=== PATIENT | female | born 1970 | race Caucasian/White ===

== ENCOUNTER → 2016-12-17 | Outpatient (CLI) | payer BC ==
[~2016-12-17] MED LIST: EPP3 IM; ETONMIS VAGRING; MEDLIST; SERT50TA PO; WLLUNK
--- NOTE | 2016-12-17 15:49 | MAMMOGRAPHY REPORT ---
BILATERAL DIGITAL SCREENING MAMMOGRAM TOMOSYNTHESIS WITH CAD: 12/17/2016 CLINICAL HISTORY: Routine screening. TECHNIQUE: Breast tomosynthesis in addition to standard 2D mammography was performed. Current study was also evaluated with a Computer Aided Detection (CAD) system. COMPARISON: Comparison is made to exams dated: 10/21/2015 mammogram, 10/22/2014 mammogram, 10/16/2014 ma mmogram, 10/26/2013 mammogram, 10/15/2013 mammogram, and 10/05/2012 mammogram - [facility]. BREAST COMPOSITION: There are scattered areas of fibroglandular density in both breasts. FINDINGS: No suspicious masses, calcifications, or areas of architectural distortion are noted in ei ther breast. There has been no significant interval change compared to prior exams. Bilateral asymme tries are stable compared to prior exams. IMPRESSION: ACR BI-RADS CATEGORY 2: BENIGN There is no mammographic evidence of malignancy. A 1 year screening mammogram is recommended. The pa tient will receive written notification of the results. Approximately 10% of breast cancers are not detected with mammography. A negative mammographic report should not delay biopsy if a clinically suggestive mass is present. Anna Marie Carrasco M.D. /:12/17/2016 12:40:36 [employer] History Professor: Brittany HARTMAN(R)(M), [facility] letter sent: Normal 1/2 BI-RADS Code: ACR BI-RADS Category 2: Benign
== END | disposition home or self-care (01) ==
LOC: C.MAMM 08:45
PROVIDERS: ATTEND Obstetrics & Gynecology
DX: Z12.31 Encounter for screening mammogram for malignant neoplasm of breast (principal)

== ENCOUNTER → 2017-01-31 | Outpatient (CLI) | payer BC | END | disposition home or self-care (01) | LOC: C.PAPS 16:21 | PROVIDERS: ATTEND Obstetrics & Gynecology | DX: Z01.419 Encounter for gynecological examination (general) (routine) without abnormal findings (principal) ==

== ENCOUNTER 2017-06-28 21:55 | Emergency (ER) | payer BC ==
[~2017-06-28] VITALS: Ht 172.7 cm; Wt 93.0 kg
[2017-06-28 22:01] VITALS: TEMP 36.8; Ht 172.7 cm; Wt 93.0 kg
[2017-06-28] MEDS ORDERED: OPTIRAY 320 IV PRN (22:45)
[2017-06-28] MEDS ORDERED: IBUP-1050 PO (22:49)
[2017-06-28] MEDS ORDERED: EPP3/2 IM (22:49)
[2017-06-28] MEDS ORDERED: MULT-513 PO (22:49)
[2017-06-28] MEDS ORDERED: CALCTAB7 PO (22:49)
[2017-06-28 22:54] LABS: ISTAT CREATININE 0.9 mg/dl (0.6-1.3); ISTAT IONIZED CALCIUM 1.16 mmol/l (1.12-1.32); ISTAT POTASSIUM 4.4 mEq/L (3.3-5.0)
--- NOTE | 2017-06-28 23:00 | DIAGNOSTIC IMAGING REPORT ---
HEAD CT NONCONTRAST CT DOSE: 653.13 mGy.cm HISTORY: headache, vision changes, famhx aneurysm TECHNIQUE: Multiaxial CT images of the head were performed without the use of intravenous contrast. Automated exposure control was utilized for this study. A dose lowering technique was utilized adhering to the principles of ALARA. Comparison: None. Findings: The paranasal sinuses and mastoid air cells are clear. The calvarium and skull base are intact. The ventricles and sulci are within normal limits. There is no mass, hematoma, midline shift, or acute infarct. Impression: No acute intracranial abnormality. Electronically signed by: Elie Corbin M.D. 06/28/2017 10:59 PM Dictated Date/Time: 06/28/2017 10:56 PM
[2017-06-28 23:02] LABS: BASO % 0.8 %; BASO ABS # 0.05 K/uL (0-0.2); EOS % 2.2 %; EOS ABS # 0.14 K/uL (0-0.5); HEMATOCRIT 40.4 % (37-47); HEMOGLOBIN 13.8 g/dL (12.0-16.0); IG# 0.01 K/uL (0.00-0.02); LYMPH % 35.1 %; LYMPH ABS # 2.28 K/uL (1.2-3.4); MEAN CELL VOLUME 94.4 fL (80-100); MEAN CORPUSCULAR HEMOGLOBIN 32.2 pg (25-34); MEAN CORPUSCULAR HGB CONC 34.2 g/dl (32-36); MEAN PLATELET VOLUME 9.9 fL (7.4-10.4); MONO % 5.9 %; MONO ABS # 0.38 K/uL (0.11-0.59); NEUT % 55.8 %; NEUT ABS # 3.63 K/uL (1.4-6.5); PLATELET COUNT 237 K/uL (130-400); RED CELL DISTRIBUTION WIDTH CV 12.9 % (11.5-14.5); RED CELL DISTRIBUTION WIDTH SD 44.8 fL (36.4-46.3); WHITE BLOOD COUNT 6.49 K/uL (4.8-10.8)
--- NOTE | 2017-06-28 23:06 | DIAGNOSTIC IMAGING REPORT ---
HEAD CTA HISTORY: Headache. Family history of aneurysm. TECHNIQUE: Multiaxial CT images of the head were performed after the intravenous administration of contrast to evaluate the major cerebral vessels. Maximum intensity projection images were also obtained. A dose lowering technique was utilized adhering to the principles of ALARA. COMPARISON: Head CT 06/28/2017. FINDINGS: There is no mass, hematoma, midline shift, or acute infarct. Visualized intracranial internal carotid arteries, distal vertebral arteries, and basilar artery are patent. 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 The bilateral lip and gate builder are fed through the posterior communicating arteries consistent with persistent circulation. This is considered to be a normal variant. There is no significant stenosis, occlusion, or aneurysm seen within the bilateral ACAs, MCAs, or lip and gate builder. The major dural venous sinuses appear patent. IMPRESSION: 1. No significant stenosis, occlusion, or aneurysm within the [place] of Yun. 2. 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 Electronically signed by: Elie Corbin M.D. 06/28/2017 11:05 PM Dictated Date/Time: 06/28/2017 10:59 PM
[2017-06-28 23:10] LABS: ALBUMIN 3.4 gm/dl (3.4-5.0); CALCIUM 9.2 mg/dl (8.5-10.1); CREATININE 0.72 mg/dl (0.60-1.20); POTASSIUM 4.2 mmol/L (3.5-5.1)
--- NOTE | 2017-06-28 23:31 | EMERGENCY ROOM VISIT NOTE ---
History First contact with patient: 22:14 Chief Complaint: HEADACHE Stated Complaint: SAAVEDRA,BLURRY VISION,RINGING EARS History of Present Illness The patient is a 46 year old female who presents to the Emergency Room with complaints of headache on and off for the past few days. The patient reports that she has had gradual onset of headache over the past 2-3 days. She states the headache has been off and on. She states that during the day, when she is busy she does not notice the headache. She rates the discomfort as 7/10 at this time. She states it is localized to the right side of the top of her head , and she feels that the pain is about 1 inch inside of her head. She has taken Aleve and ibuprofen which did seem to help the pain. She states that tonight, she has had some changes of her vision and hearing. She describes this as a "weird, fuzzy feeling." She is unable to further describe the vision or hearing changes, but denies any loss of vision. She denies photosensitivity , nausea, vomiting, recent illness, fevers or neck pain/stiffness. This is not the worst headache of her life. She states she has had a few migraines in the past but this is not similar. She is very concerned because she has a family history of a brain aneurysm. She reports that her mother had a ruptured aneurysm at age 58. Patient denies any personal history of medical problems. Review of Systems A complete 10 point review of systems was reviewed with the patient with pertinent positives and negatives as per history of present illness. All else were negative. Past Medical/Surgical History Medical Problems: (1) No significant active problems Surgical Problems: (1) History of wisdom tooth extraction Family History Brain aneurysm Hypertension Social History Smoking Status: Never Smoker Alcohol Use: occasionally Housing Status: lives with family Current/Historical Medications Scheduled Epinephrine (Epipen), 0.3 MG IM UD Ibuprofen (Advil), 400 MG PO prn ud Multivitamins/Minerals (Mvi With Minerals), 1 TAB PO DAILY Miscellaneous Medications Calcium Carbonate-Vitamin D W/ (Caltrate 600 Plus), 1 TAB PO Physical Exam Vital Signs Date Time Temp Pulse Resp B/P (MAP) Pulse Ox O2 Delivery O2 Flow Rate FiO2 06/28/17 23:47 77 18 139/91 98 06/28/17 23:25 77 18 139/91 98 Room Air 06/28/17 22:01 36.8 90 16 172/104 95 Room Air Physical Exam VITALS: Vitals are noted on the nurse's note and reviewed by myself. Vital signs stable. GENERAL: This is a 46-year-old female, in no acute distress, nondiaphoretic, well-developed well-nourished. SKIN: The skin was without rashes. HEAD: Normocephalic atraumatic. EARS: External auditory canals clear, tympanic membranes pearly ramirez without erythema or effusion bilaterally. EYES: Pupils equal round and reactive to light and accommodation. Extraocular movements intact. MOUTH: Mucous membranes moist. Tonsils are not enlarged. Pharynx without erythema or exudate. NECK: Supple without nuchal rigidity. No lymphadenopathy. No meningismus. HEART: Regular rate and rhythm without murmurs gallops or rubs. LUNGS: Clear to auscultation bilaterally without wheezes, rales or rhonchi. MUSCULOSKELETAL: Strength 5/5 throughout. NEURO: Patient was alert and oriented to person place and time. No focal neurological deficits. Medical Decision & Procedures ER Provider Diagnostic Interpretation: HEAD CT NONCONTRAST Findings: The paranasal sinuses and mastoid air cells are clear. The calvarium and skull base are intact. The ventricles and sulci are within normal limits. There is no mass, hematoma, midline shift, or acute infarct. Impression: No acute intracranial abnormality. HEAD CTA FINDINGS: There is no mass, hematoma, midline shift, or acute infarct. Visualized intracranial internal carotid arteries, distal vertebral arteries, and basilar artery are patent. 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 The bilateral hand cigar maker are fed through the posterior communicating arteries consistent with persistent circulation. This is considered to be a normal variant. There is no significant stenosis, occlusion, or aneurysm seen within the bilateral ACAs, MCAs, or hand cigar maker. The major dural venous sinuses appear patent. IMPRESSION: 1. No significant stenosis, occlusion, or aneurysm within the [place] of Yun. 2. 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 Laboratory Results 06/28/17 22:35 Red Blood Count 4.28, Mean Corpuscular Volume 94.4, Mean Corpuscular Hemoglobin 32.2, Mean Corpuscular Hemoglobin Concent 34.2, Mean Platelet Volume 9.9, Neutrophils (%) (Auto) 55.8, Lymphocytes (%) (Auto) 35.1, Monocytes (%) (Auto) 5.9, Eosinophils (%) (Auto) 2.2, Basophils (%) (Auto) 0.8, Neutrophils # (Auto) 3.63, Lymphocytes # (Auto) 2.28, Monocytes # (Auto) 0.38, Eosinophils # (Auto) 0.14, Basophils # (Auto) 0.05 06/28/17 22:35 Test 06/28/17 22:35 06/28/17 22:43 White Blood Count 6.49 K/uL (4.8-10.8) Red Blood Count 4.28 M/uL (4.2-5.4) Hemoglobin 13.8 g/dL (12.0-16.0) Hematocrit 40.4 % (37-47) Mean Corpuscular Volume 94.4 fL (80-100) Mean Corpuscular Hemoglobin 32.2 pg (25-34) Mean Corpuscular Hemoglobin Concent 34.2 g/dl (32-36) Platelet Count 237 K/uL (130-400) Mean Platelet Volume 9.9 fL (7.4-10.4) Neutrophils (%) (Auto) 55.8 % Lymphocytes (%) (Auto) 35.1 % Monocytes (%) (Auto) 5.9 % Eosinophils (%) (Auto) 2.2 % Basophils (%) (Auto) 0.8 % Neutrophils # (Auto) 3.63 K/uL (1.4-6.5) Lymphocytes # (Auto) 2.28 K/uL (1.2-3.4) Monocytes # (Auto) 0.38 K/uL (0.11-0.59) Eosinophils # (Auto) 0.14 K/uL (0-0.5) Basophils # (Auto) 0.05 K/uL (0-0.2) RDW Standard Deviation 44.8 fL (36.4-46.3) RDW Coefficient of Variation 12.9 % (11.5-14.5) Immature Granulocyte % (Auto) 0.2 % Immature Granulocyte # (Auto) 0.01 K/uL (0.00-0.02) Est Creatinine Clear Calc Drug Dose 115.2 ml/min Estimated GFR () 115.6 Estimated GFR (Non- 99.7 BUN/Creatinine Ratio 21.5 (10-20) Calcium Level 9.2 mg/dl (8.5-10.1) Total Bilirubin 0.2 mg/dl (0.2-1) Aspartate Amino Transf (AST/SGOT) 35 U/L (15-37) Alanine Aminotransferase (ALT/SGPT) 52 U/L (12-78) Alkaline Phosphatase 85 U/L (45-117) Total Protein 7.0 gm/dl (6.4-8.2) Albumin 3.4 gm/dl (3.4-5.0) Globulin 3.6 gm/dl (2.5-4.0) Albumin/Globulin Ratio 0.9 (0.9-2) Bedside Hemoglobin 13.9 g/dl (12.0-16.0) Bedside Hematocrit 41 % (37-47) Bedside Sodium 140 mEq/L (135-144) Bedside Potassium 4.4 mEq/L (3.3-5.0) Bedside Chloride 106 mEq/L (101-112) Bedside Total CO2 24 mEq/l (24-31) Anion Gap 16.0 mmol/L (16-25) Bedside Blood Urea Nitrogen 16 mg/dl (7-18) Bedside Creatinine 0.9 mg/dl (0.6-1.3) Bedside Glucose (other) 97 mg/dl (70-99) Bedside Ionized Calcium (Yun) 1.16 mmol/l (1.12-1.32) ED Course The patient was evaluated as above. Labs were drawn and IV access was obtained. CT/CTA of the head was performed and read by radiology as above. Patient was reevaluated and findings were discussed. She is still very anxious about her blood pressure but relieved about CT results. Discharge instructions were reviewed with the patient. The patient verbalized understanding of my assessment and treatment plan and was discharged home in good condition. Medical Decision Etiologies such as migraine, tumor, headache, sinus thrombosis, temporal arteritis, sinusitis, CVA, ICH, SAH, infection, as well as others were entertained. The patient is a 46-year-old female who presents today complaining of an intermittent headache for the past few days. Headache was gradual in onset. No evidence of meningitis/encephalitis on exam. Labs revealed no leukocytosis, anemia, or concerning electrolyte abnormalities. Patient was extremely anxious about the possible aneurysm given a family history. For this reason, CT/CTA were performed. These were read by radiology as negative. Patient was reassured. She was offered treatment for her headache but declined. She was advised to follow up with her PCP for recheck this week. Based on the patient's presentation and work up, I feel the patient is stable for outpatient treatment. The patient was educated to return to the emergency department for any worsening of their current condition or new/concerning symptoms. She will follow up with her PCP. Medication Reconcilliation Current Medication List: was personally reviewed by me Blood Pressure Screening Patient's blood pressure: Elevated blood pressure Blood pressure disposition: Elevated BP felt to be situational Impression Primary Impression: Headache Departure Information Dispostion Home / Self-Care Condition GOOD Referrals Keli Colby DO (PCP) Patient Instructions My [facility] Additional Instructions You have been treated in the Emergency Department for a Headache. For pain control, you can use the following [id number] medicines (if >12 yo): - Regular strength (325mg/tab) Tylenol (acetaminophen) 2 tabs every 4-6 hours as needed. Do not exceed 12 tablets in a 24 hour period. Avoid taking more than 4 grams (4000 mg) of Tylenol per day. This includes any other sources of acetaminophen you may take on a regular basis. - Regular strength (200 mg/tab) Advil (ibuprofen) 1-2 tabs every 4-6 hours as needed. Do not exceed a dose of 3200 mg per day. You should relax in a quiet, dark place for the rest of the day. Avoid any possible triggers including: cigarette smoke, caffeine, nicotine, chocolate, wine, beer, loud noises or music, or bright lights. You should schedule a follow-up appointment in 2-3 days with your Primary Care Provider for further evaluation and treatment of your Headache. Return to the Emergency Department if your current symptoms worsen despite treatment course outlined above, or if you develop any of the following symptoms : intractable pain despite aforementioned treatment course, visual disturbances , loss of vision, unilateral weakness or facial drooping, slurring of speech, loss of coordination, or loss of consciousness. Problem Qualifiers Primary Impression: Headache Headache type: unspecified Headache chronicity pattern: acute headache Intractability: not intractable Qualified Codes: R51 - Headache
[2017-06-28 23:47] VITALS: BP 139/91; PULSE 77; O2SAT 98
== END 2017-06-28 23:35 | disposition home or self-care (01) ==
LOC: C.EDB 21:57 → C.EDC 23:35
DX: R51 Headache (principal); R03.0 Elevated blood-pressure reading, without diagnosis of hypertension; Z82.49 Family history of ischemic heart disease and other diseases of the circulatory system